=== PATIENT | male | born 1950 | race Caucasian/White ===

== ENCOUNTER 2016-12-29 10:14 | Outpatient (CLI) | payer MEDICARE ==
[~2016-12-29] VITALS: Ht 185.4 cm; Wt 102.1 kg
[~2016-12-29 10:14] MED LIST: ALLO15TA PO; ASPI81TA85 PO; HYDR12CA PO; LOSA50TA20 PO; OMEG100011 PO
[2016-12-29] MEDS ORDERED: LR 1,000 ML IV SCH (11:15)
[2016-12-29] MEDS ORDERED: PROPOFOL 200 MG/20 ML VIAL As Ordered ONE (12:00)
[2016-12-29] MEDS ORDERED: LIDOCAINE 2% INJ 100 MG/5 ML SDV (FOR ANES.) As Ordered ONE (12:00)
--- NOTE | 2016-12-29 12:27 | ROOR ---
Patient Name: Demarcus Hernandez Procedure Date: 12/29/2016 11:32 AM Date of : 1950 Age: 66 Room: [facility] Gender: Male Note Status: Finalized Procedure: Colonoscopy Indications: Screening for colorectal malignant neoplasm, This is the patient's first colonoscopy Providers: Kalia Zuñiga MD Referring MD: John Ramirez Requesting Provider: Medicines: Monitored Anesthesia Care Complications: No immediate complications. Procedure: Pre-Anesthesia Assessment: - Prior to the procedure, a History and Physical was performed, and patient medications and allergies were reviewed. The patient is competent. The risks and benefits of the procedure and the sedation options and risks were discussed with the patient. All questions were answered and informed consent was obtained. Patient identification and proposed procedure were verified by the physician, the nurse and the anesthesiologist in the procedure room. Mental Status Examination: alert and oriented. Airway Examination: normal oropharyngeal airway and neck mobility. CV Examination: regular rate and rhythm. Prophylactic Antibiotics: The patient does not require prophylactic antibiotics. Prior Anticoagulants: The patient has taken no previous anticoagulant or antiplatelet agents. ASA Grade Assessment: II - A patient with mild systemic disease. After reviewing the risks and benefits, the patient was deemed in satisfactory condition to undergo the procedure. The anesthesia plan was to use monitored anesthesia care (MAC). Immediately prior to administration of medications, the patient was re-assessed for adequacy to receive sedatives. The heart rate, respiratory rate, oxygen saturations, blood pressure, adequacy of pulmonary ventilation, and response to care were monitored throughout the procedure. The physical status of the patient was re-assessed after the procedure. The Colonoscope was introduced through the anus and advanced to the cecum, identified by appendiceal orifice and ileocecal valve. The colonoscopy was performed without difficulty. The patient tolerated the procedure well. The quality of the bowel preparation was excellent. Findings: The perianal and digital rectal examinations were normal. A 4 mm polyp was found in the recto-sigmoid colon. The polyp was sessile. The polyp was removed with a hot snare. Resection and retrieval were complete. A 8 mm polyp was found in the rectum. The polyp was semi-pedunculated. The polyp was removed with a hot snare. Resection and retrieval were complete. Estimated blood loss: none. The exam was otherwise without abnormality. Impression: - One 4 mm polyp at the recto-sigmoid colon, removed with a hot snare. Resected and retrieved. - One 8 mm polyp in the rectum, removed with a hot snare. Resected and retrieved. - The examination was otherwise normal. Recommendation: - Discharge patient to home. - Resume previous diet. - Continue present medications. - Await pathology results. - Telephone endoscopist for pathology results in 1 week. - If the pathology report reveals adenomatous tissue, then repeat the colonoscopy for surveillance in 5 years. Kalia Zuñiga MD 12/29/2016 12:27:35 PM Number of Addenda: 0 Note Initiated On: 12/29/2016 11:32 AM Estimated Blood Loss: Estimated blood loss: none.
[2016-12-29 12:33] VITALS: BP 144/93
== END 2016-12-29 12:41 | disposition home or self-care (01) ==
LOC: M OPP 10:14
PROVIDERS: ATTEND Surgery
DX: Z12.11 Encounter for screening for malignant neoplasm of colon (principal); D12.7 Benign neoplasm of rectosigmoid junction; K62.1 Rectal polyp; I10 Essential (primary) hypertension; R06.83 Snoring; M10.9 Gout, unspecified; E66.9 Obesity, unspecified; Z87.442 Personal history of urinary calculi; F17.290 Nicotine dependence, other tobacco product, uncomplicated; Z79.82 Long term (current) use of aspirin; Z79.899 Other long term (current) drug therapy

== ENCOUNTER 2025-02-09 18:32 | Observation (INO) | payer MEDICARE ==
[~2025-02-09] VITALS: Ht 182.9 cm; Wt 80.2 kg
[~2025-02-09 18:32] MED LIST changes: -ALLO15TA PO; +ALLO300T2 PO; -ASPI81TA85 PO; +ASPI81TA86 PO; +HYDR12.510 PO; -HYDR12CA PO; -LOSA50TA20 PO; +LOSA50TA28 PO
[2025-02-10 08:08] LABS: BASO # 0.0 10^3/uL (0.0-0.2); BASO % 0.7 % (0.0-1.0); EOS # 0.1 10^3/uL (0.0-0.5); EOS % 1.8 % (0.0-3.0); LYMPH # 0.8 10^3/uL (1.5-5.0); LYMPH % 13.5 % (24.0-44.0); MONO # 0.5 10^3/uL (0.0-0.8); MONO % 8.1 % (2.0-8.0); NEUTROPHILS # 4.2 10^3/uL (1.5-8.5); NEUTROPHILS % 75.5 % (36.0-66.0); PLATELET COUNT, AUTOMATED 159 10^3/uL (150-450)
[2025-02-10 08:28] LABS: ALT/SGPT 23.0 U/L (7.0-40); AST/SGOT 29.0 U/L (<34); CALCIUM LEVEL 9.2 MG/DL (8.3-10.6); CARBON DIOXIDE LEVEL 25.0 MMOL/L (20-31); CHLORIDE LEVEL 104.0 MMOL/L (98-107); CK-MB VALUE MASS 4.5 NG/ML (<3.6); CPK CREATINE PHOSPHOKINASE 121.0 U/L (46-171); CREATININE FOR GFR 1.06 MG/DL (0.70-1.30); GLOMERULAR FILTRATION RATE 72.7 (>42); MAGNESIUM LEVEL 1.9 MG/DL (1.8-2.4); MB/CK RELATIVE INDEX 3.71 (< OR =4); POTASSIUM SERUM 3.9 MMOL/L (3.5-5.1); SODIUM LEVEL 141.0 MMOL/L (136-145)
[2025-02-10 09:44] LABS: CK-MB VALUE MASS 4.1 NG/ML (<3.6)
[2025-02-10 10:03] LABS: CPK CREATINE PHOSPHOKINASE 128.0 U/L (46-171); MB/CK RELATIVE INDEX 3.2 (< OR =4)
[2025-02-10] MEDS ORDERED: JARD1TAB3 PO (10:24)
[2025-02-10] MEDS ORDERED: PANT20TA6 PO (10:24)
[2025-02-10] MEDS ORDERED: XARE20TA PO (10:24)
[2025-02-10] MEDS ORDERED: B-1100TA2 PO (10:24)
[2025-02-10] MEDS ORDERED: GABA-1171 PO (10:24)
[2025-02-10] MEDS ORDERED: METO1TAB7 PO (10:24)
[2025-02-10] MEDS ORDERED: METF-838 PO (10:24)
[2025-02-10] MEDS ORDERED: HOME MED LIST COMPLETE! XX SCH (10:25)
[2025-02-10] MEDS ORDERED: MAALOX 30 ML SUSP *UDC PO PRN (10:55)
[2025-02-10 12:51] LABS: CK-MB VALUE MASS 3.5 NG/ML (<3.6)
[2025-02-10 12:53] LABS: CPK CREATINE PHOSPHOKINASE 123.0 U/L (46-171); MB/CK RELATIVE INDEX 2.84 (< OR =4)
[2025-02-10 13:10] VITALS: BP 162/106; TEMP 97.3; O2SAT 96
[2025-02-10] MEDS ORDERED: DEXTROSE 50% 50 ML SYRINGE IV PRN (13:15)
[2025-02-10] MEDS ORDERED: GLUCAGON INJ 1 MG VIAL SC PRN (13:15)
[2025-02-10] MEDS ORDERED: GLUCOSE 4 GM CHEW PO PRN (13:15)
[2025-02-10] MEDS: INSULIN LISPRO (NovoLOG) PER UNIT SC SCH ×2 (14:02→20:17)
[2025-02-10] MEDS: RIVAROXABAN 20MG TAB PO SCH (17:23)
[2025-02-10] MEDS: GABAPENTIN 100 MG CAP PO SCH (17:23)
[2025-02-10] MEDS: METOPROLOL SUCC. 50 MG *XL* TAB PO SCH (17:24)
[2025-02-10] MEDS: PANTOPRAZOLE 20 MG TAB PO SCH (17:25)
[2025-02-10 19:47] VITALS: BP 125/73; TEMP 97.7; O2SAT 96
[2025-02-11 05:03] VITALS: BP 135/67; TEMP 97.5; O2SAT 97
[2025-02-11 08:48] LABS: CALCIUM LEVEL 8.9 MG/DL (8.3-10.6); CARBON DIOXIDE LEVEL 26.0 MMOL/L (20-31); CHLORIDE LEVEL 104.0 MMOL/L (98-107); CREATININE FOR GFR 1.24 MG/DL (0.70-1.30); GLOMERULAR FILTRATION RATE 60.3 (>42); MAGNESIUM LEVEL 2.0 MG/DL (1.8-2.4); POTASSIUM SERUM 4.0 MMOL/L (3.5-5.1); SODIUM LEVEL 140.0 MMOL/L (136-145)
[2025-02-11] MEDS: THIAMINE 100 MG TAB PO SCH (08:55)
[2025-02-11 11:50] LABS: TOTAL 25(OH) VITAMIN D 18.2 NG/ML (20.0-100.0)
[2025-02-11 11:51] LABS: VITAMIN B12 LEVEL 651.0 PG/ML (211-911)
[2025-02-12 04:52] VITALS: BP 135/78; TEMP 97.7; O2SAT 96
[2025-02-12 08:00] VITALS: BP 122/74; TEMP 97.5; O2SAT 96
[2025-02-13] MEDS: ACETAMINOPHEN 325 MG TAB PO PRN (03:14)
[2025-02-13 06:53] VITALS: BP 143/83; TEMP 97.3; O2SAT 97
[2025-02-13 14:27] VITALS: BP 130/77; TEMP 97.2; O2SAT 97
[2025-02-13 20:18] VITALS: BP 133/76; TEMP 97.2; O2SAT 97
[2025-02-14 06:13] VITALS: BP 142/83; TEMP 97; O2SAT 96
[2025-02-14] MEDS: MOM 30 ML SUSPENSION UDC PO PRN (11:43)
[2025-02-14 14:00] VITALS: BP 145/84; TEMP 97.2; O2SAT 96
[2025-02-14 19:44] VITALS: BP 145/77; TEMP 97.9; O2SAT 96
[2025-02-15 05:04] VITALS: BP 159/93; TEMP 97.2; O2SAT 97
[2025-02-15 09:20] VITALS: BP 159/93
[2025-02-15 14:00] VITALS: BP 103/65; TEMP 97.5
== END 2025-02-15 17:18 | disposition home health service (06) ==
LOC: M ED 18:32 → M ED INP 02-10 10:55 → M MS5PR 02-10 13:29
PROVIDERS: ADMIT Student in an Organized Health Care Education/Training Program; ATTEND Student in an Organized Health Care Education/Training Program
DX: M62.81 Muscle weakness (generalized) (principal); R29.6 Repeated falls; I10 Essential (primary) hypertension; E11.9 Type 2 diabetes mellitus without complications; N20.0 Calculus of kidney; M10.9 Gout, unspecified; F06.71 Mild neurocognitive disorder due to known physiological condition with behavioral disturbance; Z79.84 Long term (current) use of oral hypoglycemic drugs; Z79.899 Other long term (current) drug therapy
CPT/HCPCS: 36415; 70450; 72125; 80048; 80053; 82306; 82550; 82553; 82607; 82746; 83735; 83880; 84425; 84443; 84484; 85025; 86480; 93005; 93041; 94760; 97116; 97161; 97165; 97530; 99285; G0378; J1815